=== PATIENT | female | born 2005 | race Caucasian/White ===

== ENCOUNTER 2024-02-12 07:52 | Outpatient (CLI) | payer BC, SELFPAY ==
--- NOTE | 2024-02-12 08:00 | MR_ITS ---
WS: [id number] MRI HEAD WITHOUT CONTRAST TECHNIQUE: Sagittal T1, T2 axial, T2 axial FLAIR, axial and coronal T1 images, axial susceptibility w eighted imaging, axial diffusion weighted images, and coronal T2 images were obtained. CLINICAL INFORMATION: G43.711 - Chronic migraine without aura, intractable, wit... COMPARISON: None. FINDINGS: No evidence of restricted diffusion to suggest acute ischemia. Ventricular system and basal cisterns are patent. 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 Cerebral tonsils approxi mately 11.6 mm below the foramen magnum extending to the posterior arch of C1. Mild crowding of the f oramen magnum. Normal fourth ventricle. A few small foci of T2 hyperintensity in the frontal and subc ortical white matter can be seen with migraine headaches. Normal posterior fossa. Normal vascular flow voids at the skull base. No extra-axial fluid collection s. No evidence of mass or mass effect. Paranasal sinuses and mastoid air cells are well aerated. Norm al optic chiasm and pituitary infundibulum. Temporal lobes and hippocampal formations are normal in a ppearance. No hemosiderin on the susceptibly weighted images. Brainstem signal appears normal. No hyd rocephalus. Prominent cavum septum lucidum and vergae. MR/MR head wo con* [id number] IMPRESSION: 1. Prominent Chiari I malformation with cerebellar tonsils 11.6 mm below the f oramen magnum. Normal fourth ventricle. Mild crowding at the foramen magnum. No hydrocephalus. 2. Recommend cervical and thoracic spine MRI without contrast to exclude syrin x. 3. Prominent cavum septum lucidum and vergae likely incidental. 4. A few tiny foci of T2 hyperintensity in the frontal and subcortical white m atter nonspecific in a patient this age but can be seen with migraine headaches . 5. No other acute findings.
== END 2024-02-12 07:53 | disposition home or self-care (01) ==
LOC: RAD 07:53
PROVIDERS: PCP Specialist; Visit Provider Specialist
DX: Q07.00 Arnold-Chiari syndrome without spina bifida or hydrocephalus (principal); G43.711 Chronic migraine without aura, intractable, with status migrainosus; G31.84 Mild cognitive impairment of uncertain or unknown etiology; R56.9 Unspecified convulsions
CPT/HCPCS: 70551

== ENCOUNTER 2024-03-05 09:19 | Outpatient (CLI) | payer BC, SELFPAY ==
--- NOTE | 2024-03-05 09:30 | MR_ITS ---
WS: [id number] MRI CERVICAL SPINE NONCONTRAST HISTORY: G93.5 - Compression of brain COMPARISON: MRI head 02/12/2024 Technique: Multiplanar, multisequence noncontrast imaging of the cervical spine. Mild straightening of the normal cervical lordosis. Normal alignment otherwise. Signal within the cervical cord is normal. Visualized posterior fossa is unremarkable. Inferior displacement and pointing of the cerebellar tonsils extending below the foramen magnum by 12 .6 mm. There is crowding of the foramen magnum by the cerebellar tonsils. Fourth ventricle is normal size. No syrinx is identified within the cervical cord. There is a normal appearance of the cervical cord w ith no enlargement or atrophy. C2-C3: Normal. C3-C4: Normal. C4-C5: Normal. C5-C6: Normal. C6-C7: Normal. C7-T1: Normal. Paraspinal soft tissue are normal. MR/MR cervical spin wo con* [id number] IMPRESSION: 1. No cervical cord syrinx. Normal cervical cord with no atrophy. 2. Chiari I malformation. Cerebellar tonsils extend 12.6 mm below the foramen magnum. No hydrocephalus. Normal size fourth ventricle. 3. No disc protrusions or cervical stenosis.
--- NOTE | 2024-03-05 10:15 | MR_ITS ---
WS: [id number] MRI THORACIC SPINE noncontrast. HISTORY: G93.5 - Compression of brain COMPARISON: None available. TECHNIQUE: Multiplanar sequences are performed in sagittal and axial planes. Normal thoracic alignment. Disc spaces and vertebral body heights are well-preserved. Conus tapers no rmally at the thoracolumbar junction. Normal appearance of the thoracic cord. There is no syrinx. No cord enlargement or atrophy. T1-2: Normal. T2-3: Normal. T3-4: Normal. T4-5: Normal. T5-6: Normal. T6-7: Normal. T7-8: Normal. T8-9: Normal. T9-10: Normal. T10-11: Normal. T11-12: Normal. MR/MR thoracic spin wo con* [id number] IMPRESSION: 1. Normal thoracic spine MRI. 2. No thoracic cord syrinx.
== END 2024-03-05 09:20 | disposition home or self-care (01) ==
PROVIDERS: PCP Family Medicine; Visit Provider Specialist
DX: G93.5 Compression of brain (principal)
CPT/HCPCS: 72141; 72146